=== PATIENT | female | born 1960 | race Caucasian/White ===

== ENCOUNTER 2018-03-18 05:22 | Day surgery (SDC) | payer BC ==
[~2018-03-18] VITALS: Ht 162.6 cm; Wt 91.6 kg
--- NOTE | 2018-03-18 05:30 | NUR ---
ms/rn notes RECEIVED PATIENT FOR DAY SURGERY, ADMITTING MD NUNEZ FOR PROCEDURE OR RIGHT SHOULDER ARTHROSCOPY, A 57 YO FEMALE WITH ELECTIVE DAY SURGERY, ALERT, ORIENTED X3, AMBULATORY, ARRIVED WITH FAMILY. SKIN INTACT, NO PAIN VERBALIZED AND OBSERVED, PARTICIPATIVE AND COOPERATIVE TO CARE, RESPIRATIONS EVEN AND UNLABORED,LEFT HAND GAUGE 18 INSERTED, PREPARED FOR SURGERY ON NPO STATUS. WITH HX OF MULTIPLE SURGERY, AND NERVE PAIN. CALL LIGHTS WITHIN REACH, BELONGINGS CHECK, ROOM ORIENTATION PROVIDED, CONSENT SIGNED.
[2018-03-18 06:00] VITALS: BP 140/80
[2018-03-18] MEDS ORDERED: EPINEPHRINE (1:1000) MDV 30 MG/30ML VIAL ONE (06:13)
[2018-03-18 06:23] VITALS: BP 140/80
[2018-03-18] MEDS ORDERED: CYAN10009 PO (06:40)
[2018-03-18] MEDS ORDERED: PREG100C PO (06:40)
--- NOTE | 2018-03-18 07:00 | NUR ---
MS/RN NOTES PATIENT WAS PICKED UP BY OPERATING ROOM NURSE FOR SURGERY, PRE OP CHECKLIST AND CONSENT REVIEWED, TRANSFERED ON A GURNEY ACCOMPANIED BY FAMILY MEMBER.
--- NOTE | 2018-03-18 07:32 | NUR ---
RECEIVED REPORT FROM DONAVAN HOWARD. PT IS NOT ON THE FLOOR, LEFT FOR SURGERY. WILL F/U
[2018-03-18] MEDS ORDERED: SUCCINYLCHOLINE CHLORIDE 20 MG/ML VIAL ONE (07:51)
[2018-03-18 08:00] VITALS: BP 124/74
[2018-03-18] MEDS ORDERED: methylPREDNISolone ACETATE 40 MG/ML VIAL ONE (08:13)
[2018-03-18] MEDS ORDERED: LIDOCAINE 1% INJ 50 ML MDV IJ ONE (08:13)
[2018-03-18] MEDS ORDERED: HYDROMORPHONE INJ 2 MG/ML DISP.SYRIN ONE (08:33)
--- NOTE | 2018-03-18 09:05 | NUR ---
PT CAME BACK FROM SURGERY AWAKE A/O X4. NO DISTRESS NOTED AT THIS TIME. PT DENIED PAIN AT THIS TIME. VS ARE STABLE, O2 SATURATION 96 ON ROOM AIR. ORDERS ARE CARRIED OUT. PT CAN BE DISCARDED IF STABLE.WILL CONTINUE TO MONITOR
== END 2018-03-18 11:35 | disposition home or self-care (01) ==
LOC: DS 05:22 → UNDOADMIN 05:27 → MED 05:27 → DS 11:35
PROVIDERS: ATTEND Specialist
DX: M19.011 Primary osteoarthritis, right shoulder (principal); M75.41 Impingement syndrome of right shoulder; M65.811 Other synovitis and tenosynovitis, right shoulder; Z98.890 Other specified postprocedural states; Z79.899 Other long term (current) drug therapy
CPT/HCPCS: 29824; 29826; 87081; 88304; 88311; J0171; J0330; J0690; J1030; J1100; J1885; J2704; J3490 ×2; A4217; J1170; Z7610